=== PATIENT | female | born 1990 | race Caucasian/White ===

== ENCOUNTER → 2020-09-07 08:18 | Outpatient (BNVA) | payer SELFPAY | PROVIDERS: Family Provider Nurse Practitioner Family; Visit Provider Nurse Practitioner | DX: Z79.899 Other long term (current) drug therapy (principal) | CPT/HCPCS: 80061; 83036 ==

== ENCOUNTER → 2023-04-02 11:30 | Outpatient (BNVA) | payer SELFPAY | PROVIDERS: Family Provider Nurse Practitioner Family; PCP Family Medicine; Visit Provider Family Medicine | DX: N39.0 Urinary tract infection, site not specified (principal); R31.9 Hematuria, unspecified; R05.9 Cough, unspecified | CPT/HCPCS: 81003; 87077; 87086; 87184; 87400; 87426 ==

== ENCOUNTER 2023-04-04 08:42 | Emergency (ER) | payer SELFPAY ==
[2023-04-04 08:52] VITALS: BP 113/86; PULSE 94; RESP 18; TEMP 36.5; O2SAT 98; BMI 24.8
[2023-04-04 09:00] VITALS: BP 126/85; PULSE 108; RESP 18; O2SAT 99
[2023-04-04 09:08] LABS: Basophils % 0.3 %; Eosinophils % 0.2 %; Hematocrit 36.5 % (36-47); Lymphocytes # 1.6 10^3/uL (0.8-4.8); Lymphocytes % 13.3 %; Mean Corpuscular HGB Conc 32.9 g/dL (30-55); Mean Corpuscular Hemoglobin 30.7 pg (27-33); Mean Corpuscular Volume 93.4 fl (85-98); Mean Platelet Volume 9.6 fL (7.4-10.4); Monocytes # 1.4 10^3/uL (0.2-0.9); Monocytes % 11.9 %; Neutrophils # 8.92 10^3/uL (1.8-7.7); Neutrophils % 73.6 %; Nucleated Red Blood Cells % 0 %; Platelet Count 218 10^3/cmm (157-399); Red Blood Count 3.91 10^6/uL (3.85-5.65); Red Cell Distribution Width 12.4 % (12.1-15.1); White Blood Count 12.12 10^3/uL (3.29-11.43)
[2023-04-04] MEDS: sodium chloride 0.9% 1,000 ML 999 ML IV (09:20)
[2023-04-04] MEDS: ondansetron 2 mg/ML SDV 2 mL 4 MG IVP (09:20)
[2023-04-04 09:32] LABS: HCG, Serum Qual Negative (Negative)
[2023-04-04 09:37] LABS: Alanine Aminotransferase 11 U/L (0-33); Albumin Level 3.5 g/dL (3.5-5.2); Alkaline Phosphatase 69 U/L (35-105); Aspartate Amino Transferase 17 U/L (0-32); Blood Urea Nitrogen 9 mg/dL (6-20); Calcium 8.9 mg/dL (8.5-10.5); Carbon Dioxide 24 mmol/L (22-29); Chloride 98 mmol/L (98-107); Creatinine Clr Calc Pharmacy 77.5421; Globulin 3.4 g/dL (1.3-4.6); Glomerular Filtration Rate 72.6 mL/min (90-130); Glucose 114 mg/dL (65-115); Lipase 13 U/L (13-60); Osmolality Calculated 276 mOsm/kg (285-295); Sodium 133 mmol/L (136-145); Total Bilirubin 0.2 mg/dL (0.15-1.2); Total Protein 6.9 g/dL (6.6-8.7)
--- NOTE | 2023-04-04 09:47 | W.ED.ABDPA2 ---
HPI - Abdominal Pain General: Chief Complaint: Abdominal Pain Stated Complaint: dr bustos, right side abd pain Time Seen by Provider: 04/04/23 08:48 Source: patient Mode of arrival: ambulatory History of Present Illness: 32-year-old female presents emergency room planing of right flank pain. She seen several days ago and started on oral antibiotics for UTI she been taking Bactrim daily. She has fevers at night she continues to have dysuria urgency or frequency. No vomiting or diarrhea she is currently on her period so has not been able to tell if she had any hematuria. MD elicited complaint: flank pain Pertinent past history: past UTI Onset (ago): day(s) Pain Consistency: constant Quality: aching Exacerbating factors: nothing Relieving factors: nothing Associated Symptoms: Denies anorexia, belching, bloating, change in bowel habits, change in stool character, chills, coffee ground emesis, constipation, GI cramping, diarrhea, dyspepsia, dysuria, excessive flatus, fever(s), heartburn, hematochezia, hematuria, hematemesis, fecal incontinence, loose stools, melena, nausea, poor appetite, syncope and vomiting Review of Systems Const: Denies: fever(s) or chills Card: Denies: chest pain or syncope Resp: Denies: dyspnea GI: Denies: abdominal pain, nausea, vomiting, hematemesis, coffee ground emesis, heartburn, diarrhea, constipation, bloating, GI cramping, belching, excessive flatus, fecal incontinence, change in bowel habits, change in stool character, hematochezia or melena : Denies: dysuria, urinary frequency, urinary urgency or hematuria Musc: Denies: neck pain or back pain Skin/Breast: Denies: rash PFSH ED PFSH: Medical History Psychiatric care On high dose antipsychotic drug therapy Post-traumatic stress disorder, chronic Major depressive disorder, recurrent, in partial remission Generalized anxiety disorder Social History Smoking and tobacco/nicotine status: never used tobacco/nicotine Physical Exam Const: GENERAL APPEARANCE: cooperative and comfortable ORIENTATION/CONSCIOUSNESS: Yes awake, Yes oriented to person, Yes oriented to place and Yes oriented to time HENMT: COMMON NORMALS: normocephalic, atraumatic and hearing grossly normal bilaterally HEAD & SCALP: normocephalic and atraumatic Resp: COMMON NORMALS: normal respiratory effort, No retractions, No use of accessory muscles and clear to auscultation bilaterally AUSCULTATION: clear to auscultation bilaterally Cardio: COMMON NORMALS: regular rate, regular rhythm and No murmurs present (Cardio) RATE: regular rate RHYTHM: regular rhythm GI: COMMON NORMALS: Soft to palpation and No hepatosplenomegaly present AUSCULTATION: Yes normoactive bowel sounds PALPATION: Yes Soft to palpation, No Tenderness to palpation present (GI), No Guarding due to palpation present (GI) and Yes No hepatosplenomegaly present Extremity: COMMON NORMALS: normal to inspection, capillary refill normal, no clubbing, cyanosis or edema, no calf tenderness and no pedal edema Neuro: SENSORIUM/ORIENTATION: Yes oriented to person, Yes oriented to place and Yes oriented to time Skin: COMMON NORMALS: no rashes or lesions noted GENERAL SKIN EXAM: no rashes or lesions noted Course Vital Signs: Vital signs: Vital Signs Temperature 97.7 F 04/04/23 08:52 Pulse Rate 87 04/04/23 09:54 Respiratory Rate 18 04/04/23 09:54 Blood Pressure 126/85 04/04/23 09:54 Pulse Oximetry 97 04/04/23 09:54 Oxygen Delivery Me thod Room Air 04/04/23 09:54 MDM - Abdominal Pain Medical Decision Making Abdomen imaging reviewed patient does have mild pyelonephritis changed to Cipro treat as an outpatient return if has further problems Medical Records I reviewed the patient's medical records. Lab Data I reviewed the patient's lab results. 04/04/23 08:59 04/04/23 08:59 Labs/Radiology: Laboratory Results WBC 12.12 10^3/uL (3.29-11.43) H 04/04/23 08:59 RBC 3.91 10^6/uL (3.85-5.65) 04/04/23 08:59 Hgb 12.00 g/dL (11.27-16.99) 04/04/23 08:59 Hct 36.5 % (36-47) 04/04/23 08:59 MCV 93.4 fl (85-98) 04/04/23 08:59 MCH 30.7 pg (27-33) 04/04/23 08:59 MCHC 32.9 g/dL (30-55) 04/04/23 08:59 RDW 12.4 % (12.1-15.1) 04/04/23 08:59 Plt Count 218 10^3/cmm (157-399) 04/04/23 08:59 MPV 9.6 fL (7.4-10.4) 04/04/23 08:59 Neut % (Auto) 73.6 % 04/04/23 08:59 Lymph % (Auto) 13.3 % 04/04/23 08:59 [place] % (Auto) 11.9 % 04/04/23 08:59 Eos % (Auto) 0.2 % 04/04/23 08:59 Baso % (Auto) 0.3 % 04/04/23 08:59 Neut # (Auto) 8.92 10^3/uL (1.8-7.7) H 04/04/23 08:59 Lymph # (Auto) 1.6 10^3/uL (0.8-4.8) 04/04/23 08:59 [place] # (Auto) 1.4 10^3/uL (0.2-0.9) H 04/04/23 08:59 Eos # (Auto) 0.0 10^3/uL (0.0-0.8) 04/04/23 08:59 Baso # (Auto) 0.0 10^3/uL (0.0-0.1) 04/04/23 08:59 Nucleated RBC % (auto) 0 % 04/04/23 08:59 Nucleated RBCs # 0.0 /100WBC 04/04/23 08:59 Sodium 133 mmol/L (136-145) L 04/04/23 08:59 Potassium 3.0 mmol/L (3.5-5.1) L 04/04/23 08:59 Chloride 98 mmol/L (98-107) 04/04/23 08:59 Carbon Dioxide 24 mmol/L (22-29) 04/04/23 08:59 Anion Gap 14.0 (5-19) 04/04/23 08:59 BUN 9 mg/dL (6-20) 04/04/23 08:59 Creatinine 0.9 mg/dL (0.5-0.9) 04/04/23 08:59 GFR Calculation 72.6 mL/min (90-130) L 04/04/23 08:59 Glucose 114 mg/dL (65-115) 04/04/23 08:59 Calculated Osmolality 276 mOsm/kg (285-295) L 04/04/23 08:59 Calcium 8.9 mg/dL (8.5-10.5) 04/04/23 08:59 Total Bilirubin 0.2 mg/dL (0.15-1.2) 04/04/23 08:59 AST 17 U/L (0-32) 04/04/23 08:59 ALT 11 U/L (0-33) 04/04/23 08:59 Alkaline Phosphatase 69 U/L (35-105) 04/04/23 08:59 Total Protein 6.9 g/dL (6.6-8.7) 04/04/23 08:59 Albumin 3.5 g/dL (3.5-5.2) 04/04/23 08:59 Globulin 3.4 g/dL (1.3-4.6) 04/04/23 08:59 Lipase 13 U/L (13-60) 04/04/23 08:59 HCG, Qual Negative (Negative) 04/04/23 08:59 Urine Color [place] (Yellow) A 04/04/23 09:18 Urine Appearance Sl hazy (CLEAR) A 04/04/23 09:18 Urine pH 5 (5-7) 04/04/23 09:18 Ur Specific [place] 1.010 (1.005-1.030) 04/04/23 09:18 Urine Protein 3+ (Negative) H 04/04/23 09:18 Urine Glucose (UA) Norm (Normal) 04/04/23 09:18 Urine Ketones Negative (Negative) 04/04/23 09:18 Urine Blood 2+ (Negative) H 04/04/23 09:18 Urine Nitrate Positive (Negative) H 04/04/23 09:18 Urine Bilirubin 2+ (Negative) H 04/04/23 09:18 Urine Urobilinogen 4+ mg/dL (Negative) H 04/04/23 09:18 Ur Leukocyte Esterase Negative (Negative) 04/04/23 09:18 Urine RBC 0-4 /hpf (0-2) H 04/04/23 09:18 Urine WBC 55-80 /hpf (0-5) H 04/04/23 09:18 Ur Squamous Epith Cells 15-25 /hpf (0-5) H 04/04/23 09:18 Amorphous Sediment Not Reportable 04/04/23 09:18 Urine Bacteria Trace /hpf (NONE) 04/04/23 09:18 No radiology studies performed this visit Discharge Plan Discharge Patient Disposition: Home Clinical Impression: Pyelonephritis Condition: Stable Prescriptions: New ciprofloxacin HCl 500 mg tablet 500 mg PO BID Qty: 20 0RF Discontinued sulfamethoxazole-trimethoprim [Bactrim DS] 800-160 mg tablet 1 tab PO BID Qty: 20 0RF No Action melatonin 10 mg capsule 20 mg PO .at bedtime clonazepam 1 mg tablet 1 mg PO BID PRN (Reason: anxiety) Qty: 60 2RF escitalopram oxalate [Lexapro] 10 mg tablet 10 mg PO DAILY Qty: 30 2RF trazodone 50 mg tablet 100 mg PO DAILY Qty: 60 5RF Rx Instructions: Take 1-2 tablets at bedtime as needed for sleep. phenazopyridine [Pyridium] 100 mg tablet 100 mg PO TID Qty: 20 0RF fexofenadine-pseudoephedrine [[place]cia-D 12 Hour] 60-120 mg tablet extended release 12 hr 1 tab PO Q12H PRN (Reason: allergy symptoms) Qty: 20 0RF spironolactone 100 mg tablet See Rx Instructions .ROUTE .COMPLEX Rx Instructions: TAKE 100 MG IN THE AM AND 50 MG IN THE PM acetaminophen 500 mg Tablet 500 mg PO Q6H PRN (Reason: Pain) ibuprofen 200 mg Tablet 200 mg PO Q6H PRN (Reason: Pain) Discharge Orders: Discharge ED (Routine); Ordered 04/04/23 Ordered By: Sergio Astorga Referrals: Michelle Anderson PA [Primary Care Provider] - Fine,BRIANNA Swan [Family Provider] - Discharge Diet: Usual diet Discharge Activity: Increase activity as tolerated Patient Instructions: Urinary Tract Infection in Women (ED), Opioid Safety, Pain Management, Pyelonephritis Activity Restrictions/Additional Instructions: Thank you for choosing [facility] for your healthcare needs today. Please realize this is an emergency room and that we are providing you with a medical screening exam and this may not be complete and all inclusive of all the testing and or work up that you may need to determine your ailment or severity of your illness. It is very important that you follow up as instructed or that you return to the Emergency Department should you have concerns or if your condition changes or worsens in any way. Coding Level of Care Code ED Career Based Intervention Coordinator for Lupe Mclain
[2023-04-04 09:48] LABS: Urine Appearance SL Hazy (CLEAR); Urine Color Orange (Yellow); pH Urine 5 (5-7)
[2023-04-04 09:49] LABS: Add Urine Culture? No; Add Urine Microscopic? YES; Bacteria Urine TRACE /hpf; Bilirubin Urine 2+ (Negative); Blood Urine 2+ (Negative); Glucose Urine UA Norm (Normal); Ketones Urine Negative (Negative); Leukocyte Esterase Urine Negative (Negative); Nitrate Urine Positive (Negative); Protein Urine 3+ (Negative); RBC Urine 0-4 /hpf (0-2); Squamous Epithelial Cell Urine 15-25 /hpf (0-5); Urobilinogen Urine 4+ mg/dL (Negative); WBC Urine 55-80 /hpf (0-5)
[2023-04-04 09:54] VITALS: BP 126/85; PULSE 87; RESP 18; O2SAT 97
== END 2023-04-04 10:54 | disposition home or self-care (01) ==
PROVIDERS: Emergency Provider Family Medicine; Family Provider Nurse Practitioner Family; PCP Physician Assistant
DX: N12 Tubulo-interstitial nephritis, not specified as acute or chronic (principal)
CPT/HCPCS: 36415; 80053; 81001; 83690; 84703; 85025; 96374; 99284; J2405; J7030